=== PATIENT | male | born 1940 | race Caucasian/White ===

== ENCOUNTER 2017-12-05 09:50 | Emergency (ER) | payer OTHER ==
[2017-12-05 13:13] LABS: ADD MAN DIFF? NO
[2017-12-05 13:16] LABS: WHITE BLOOD COUNT 6.6 10^3/ul (4.8-10.8)
[2017-12-05 13:16] LABS: BASOPHIL # 0.1 10^3/ul (0.0-0.1); BASOPHILS % 0.9 % (0.0-2.0); EOSINOPHILS % 0.5 % (0.0-7.0); HEMOGLOBIN 16.6 g/dl (14.0-18.0); LYMPHOCYTES % 30.8 % (15.0-51.0); MEAN CORPUSCULAR HEMOGLOBIN 29.9 pg (29.0-33.0); MEAN CORPUSCULAR HGB CONC 33.2 g/dl (32.0-37.0); MEAN CORPUSCULAR VOLUME 90.1 fl (82.0-101.0); MEAN PLATELET VOLUME 12.2 fl (7.4-10.4); MONOCYTE # 0.5 10^3/ul (0.3-0.9); MONOCYTES % 7.8 % (0.0-11.0); NEUTROPHIL # 3.9 10^3/ul (1.6-7.5); NEUTROPHILS % 59.7 % (39.0-77.0); PLATELET COUNT 166 10^3/UL (140-415); RED BLOOD COUNT 5.55 10^6/ul (4.70-6.10); RED CELL DISTRIBUTION WIDTH 12.6 % (11.5-14.5)
[2017-12-05 13:37] LABS: ANION GAP 18 (8-16); BLOOD UREA NITROGEN 12 mg/dl (7-20); CALCIUM 9.4 mg/dl (8.4-10.2); CARBON DIOXIDE 21 mmol/L (21-31); CHLORIDE 106 mmol/L (97-110); CREATININE 1.11 mg/dl (0.61-1.24); GLUCOSE 129 mg/dl (70-220); POTASSIUM 4.4 mmol/L (3.5-5.1); SODIUM 141 mmol/L (135-144)
[2017-12-05 13:49] LABS: TROPONIN-I < 0.012 ng/ml (0.00-0.12)
[2017-12-05] MEDS: NICARDipine HCL 30 MG CAPSULE PO (14:08)
== END 2017-12-05 15:46 | disposition home or self-care (01) ==
LOC: E/R 09:50
DX: I10 Essential (primary) hypertension (principal); R00.1 Bradycardia, unspecified
CPT/HCPCS: 36415; 71045; 80048; 84484; 85025; 93005; 99285-25

== ENCOUNTER 2018-09-03 05:26 | Emergency (ER) | payer OTHER ==
[2018-09-03] MEDS: SODIUM CHLORIDE 0.9% 1L BAG IV* (06:41)
[2018-09-03 06:42] LABS: ADD MAN DIFF? NO
[2018-09-03 06:47] LABS: ABNORMAL IP MESSAGE 1; BASOPHILS % 0.2 % (0.0-2.0); HEMATOCRIT 42.3 % (42.0-52.0); HEMOGLOBIN 14.4 g/dl (14.0-18.0); LYMPHOCYTES # 0.4 10^3/ul (0.8-2.9); LYMPHOCYTES % 2.7 % (15.0-51.0); MEAN CORPUSCULAR HEMOGLOBIN 30.1 pg (29.0-33.0); MEAN CORPUSCULAR VOLUME 88.3 fl (82.0-101.0); MEAN PLATELET VOLUME 11.2 fl (7.4-10.4); MONOCYTES % 5.9 % (0.0-11.0); NEUTROPHIL # 14.6 10^3/ul (1.6-7.5); NEUTROPHILS % 90.5 % (39.0-77.0); PLATELET COUNT 147 10^3/UL (140-415); POSITIVE DIFF @See below; RED BLOOD COUNT 4.79 10^6/ul (4.70-6.10); RED CELL DISTRIBUTION WIDTH 12.6 % (11.5-14.5)
[2018-09-03 06:47] LABS: WHITE BLOOD COUNT 16.2 10^3/ul (4.8-10.8)
[2018-09-03 07:04] LABS: ADD UMIC YES; UR ASCORBIC ACID NEGATIVE (NEGATIVE); UR BACTERIA FEW /HPF (NONE SEEN); UR BILIRUBIN (Dip) NEGATIVE (NEGATIVE); UR BLOOD (Dip) 1+ mg/dL (NEGATIVE); UR CLARITY CLEAR (CLEAR); UR COLOR YELLOW (YELLOW); UR GLUCOSE (Dip) NEGATIVE (NEGATIVE); UR KETONES (Dip) TRACE mg/dL (NEGATIVE); UR LEUKOCYTE ESTERASE (Dip) NEGATIVE Leu/ul (NEGATIVE); UR NITRITE (Dip) NEGATIVE (NEGATIVE); UR RBC 0 /HPF (0-5); UR SPECIFIC GRAVITY (Dip) 1.013 (1.003-1.030); UR TOTAL PROTEIN (Dip) NEGATIVE (NEGATIVE); UR UROBILINOGEN (Dip) NEGATIVE (NEGATIVE); UR WBC 0 /HPF (0-5)
[2018-09-03 07:05] LABS: ALANINE AMINOTRANSFERASE 25 IU/L (13-69); ALBUMIN 4.1 g/dl (3.3-4.9); ALBUMIN/GLOBULIN RATIO 1.41; ALKALINE PHOSPHATASE 50 IU/L (42-121); ANION GAP 11 (5-13); ASPARTATE AMINO TRANSFERASE 24 IU/L (15-46); BILIRUBIN,INDIRECT 1.1 mg/dl (0-1.1); BILIRUBIN,TOTAL 1.1 mg/dl (0.2-1.3); BLOOD UREA NITROGEN 22 mg/dl (7-20); CARBON DIOXIDE 25 mmol/L (21-31); CHLORIDE 100 mmol/L (97-110); CREATININE 1.26 mg/dl (0.61-1.24); GLUCOSE 151 mg/dl (70-220); POTASSIUM 3.6 mmol/L (3.5-5.1); SODIUM 136 mmol/L (135-144)
[2018-09-03 07:09] LABS: INR 1.01; PROTIME 13.4 Sec (11.9-14.9)
[2018-09-03 07:10] LABS: PARTIAL THROMBOPLASTIN TIME 29.5 Sec (23.0-35.0)
[2018-09-03 07:15] LABS: TROPONIN-I < 0.012 ng/ml (0.000-0.120)
[2018-09-03] MEDS: ONDANSETRON 4 MG INJ IV (07:22)
== END 2018-09-03 08:08 | disposition home or self-care (01) ==
LOC: E/R 05:26
DX: R35.0 Frequency of micturition (principal); R11.0 Nausea; R40.2142 Coma scale, eyes open, spontaneous, at arrival to emergency department; R40.2252 Coma scale, best verbal response, oriented, at arrival to emergency department; R40.2362 Coma scale, best motor response, obeys commands, at arrival to emergency department; I10 Essential (primary) hypertension
CPT/HCPCS: 36415; 71045; 80053; 81001; 83605; 84484; 85025; 85610; 85730; 87040; 87086; 93005; 96361; 96374; 99285-25

== ENCOUNTER 2019-03-25 19:25 | Inpatient (IN) | payer OTHER ==
[2019-03-25 20:12] LABS: ADD MAN DIFF? NO
[2019-03-25] MEDS: ONDANSETRON 4 MG INJ IV (20:12)
[2019-03-25] MEDS: LIDOCAINE/MYLANTA 40 ML BTL PO (20:12)
[2019-03-25] MEDS: KETOROLAC 15 MG INJ IV (20:12)
[2019-03-25] MEDS: BELLADONNA/PHENOBARBITAL TAB PO (20:12)
[2019-03-25] MEDS: SOD CHLORIDE 0.9% 1,000 ML IV (20:12)
[2019-03-25 20:14] LABS: BASOPHILS % 0.8 % (0.0-2.0); EOSINOPHILS # 0.1 10^3/ul (0.0-0.5); EOSINOPHILS % 1.4 % (0.0-7.0); HEMATOCRIT 43.9 % (42.0-52.0); HEMOGLOBIN 14.5 g/dl (14.0-18.0); LYMPHOCYTES # 1.9 10^3/ul (0.8-2.9); LYMPHOCYTES % 36.9 % (15.0-51.0); MEAN CORPUSCULAR HEMOGLOBIN 30.1 pg (29.0-33.0); MEAN CORPUSCULAR VOLUME 91.1 fl (82.0-101.0); MEAN PLATELET VOLUME 11.1 fl (7.4-10.4); MONOCYTE # 0.6 10^3/ul (0.3-0.9); MONOCYTES % 11.8 % (0.0-11.0); NEUTROPHIL # 2.5 10^3/ul (1.6-7.5); NEUTROPHILS % 48.9 % (39.0-77.0); PLATELET COUNT 157 10^3/UL (140-415); RED BLOOD COUNT 4.82 10^6/ul (4.70-6.10)
[2019-03-25 20:14] LABS: WHITE BLOOD COUNT 5.1 10^3/ul (4.8-10.8)
[2019-03-25 20:27] LABS: ALANINE AMINOTRANSFERASE 23 IU/L (13-69); ALBUMIN 3.9 g/dl (3.3-4.9); ALBUMIN/GLOBULIN RATIO 1.18; ALKALINE PHOSPHATASE 49 IU/L (42-121); ANION GAP 8 (5-13); ASPARTATE AMINO TRANSFERASE 22 IU/L (15-46); BILIRUBIN,INDIRECT 0.6 mg/dl (0-1.1); BILIRUBIN,TOTAL 0.6 mg/dl (0.2-1.3); BLOOD UREA NITROGEN 23 mg/dl (7-20); CARBON DIOXIDE 25 mmol/L (21-31); CHLORIDE 105 mmol/L (97-110); CREATININE 1.26 mg/dl (0.61-1.24); GLUCOSE 154 mg/dl (70-220); LIPASE 309 U/L (23-300); POTASSIUM 3.8 mmol/L (3.5-5.1); SODIUM 138 mmol/L (135-144); TOTAL PROTEIN 7.2 g/dl (6.1-8.1)
[2019-03-25 20:33] LABS: INR 0.99; PROTIME 13.2 Sec (11.9-14.9)
[2019-03-25 20:34] LABS: PARTIAL THROMBOPLASTIN TIME 30.5 Sec (23.0-35.0)
[2019-03-25 20:39] LABS: TROPONIN-I < 0.012 ng/ml (0.000-0.120)
[2019-03-25] MEDS: PIPER-TAZO 3.375 GM IV (PMX) 100 ML IVPB (21:22)
[2019-03-25] MEDS: HYDROmorphONE 2 MG/ML SYG IV (22:21)
[2019-03-25] MEDS ORDERED: NACL 0.9% 3 ML SYG IV (22:30)
[2019-03-25] MEDS ORDERED: DOCUSATE SODIUM 100 MG CAP PO (22:30)
[2019-03-25] MEDS ORDERED: ACETAMINOPHEN 325 MG TAB PO (22:30)
[2019-03-26] MEDS: FAMOTIDINE 20 MG INJ IV ×2 (01:08→22:50)
[2019-03-26] MEDS: D5-NS + KCL 20 MEQ 1,000 ML IV ×2 (01:08→11:50)
[2019-03-26] MEDS: hydrALAzine 20 MG INJ IV ×2 (01:14→08:48)
[2019-03-26 07:06] LABS: ADD MAN DIFF? NO
[2019-03-26 07:11] LABS: WHITE BLOOD COUNT 8.1 10^3/ul (4.8-10.8)
[2019-03-26 07:11] LABS: BASOPHILS % 0.5 % (0.0-2.0); EOSINOPHILS % 0.1 % (0.0-7.0); HEMATOCRIT 46.1 % (42.0-52.0); HEMOGLOBIN 14.8 g/dl (14.0-18.0); LYMPHOCYTES # 1.1 10^3/ul (0.8-2.9); LYMPHOCYTES % 13.9 % (15.0-51.0); MEAN CORPUSCULAR HEMOGLOBIN 29.6 pg (29.0-33.0); MEAN CORPUSCULAR HGB CONC 32.1 g/dl (32.0-37.0); MEAN CORPUSCULAR VOLUME 92.2 fl (82.0-101.0); MEAN PLATELET VOLUME 11.6 fl (7.4-10.4); MONOCYTE # 0.5 10^3/ul (0.3-0.9); NEUTROPHIL # 6.4 10^3/ul (1.6-7.5); NEUTROPHILS % 79.3 % (39.0-77.0); PLATELET COUNT 144 10^3/UL (140-415); RED CELL DISTRIBUTION WIDTH 13.4 % (11.5-14.5)
[2019-03-26 07:42] LABS: TROPONIN-I < 0.012 ng/ml (0.000-0.120)
[2019-03-26 08:12] LABS: ALANINE AMINOTRANSFERASE 23 IU/L (13-69); ALBUMIN 4.1 g/dl (3.3-4.9); ALBUMIN/GLOBULIN RATIO 1.24; ALKALINE PHOSPHATASE 52 IU/L (42-121); ANION GAP 9 (5-13); ASPARTATE AMINO TRANSFERASE 25 IU/L (15-46); BILIRUBIN,INDIRECT 0.8 mg/dl (0-1.1); BILIRUBIN,TOTAL 0.8 mg/dl (0.2-1.3); BLOOD UREA NITROGEN 17 mg/dl (7-20); CARBON DIOXIDE 23 mmol/L (21-31); CHLORIDE 108 mmol/L (97-110); CREATININE 1.12 mg/dl (0.61-1.24); GLUCOSE 123 mg/dl (70-220); POTASSIUM 4.3 mmol/L (3.5-5.1); SODIUM 140 mmol/L (135-144); TOTAL PROTEIN 7.4 g/dl (6.1-8.1)
[2019-03-26 08:29] LABS: FREE THYROXINE INDEX (Calc) 3.09 ug/ml (0.65-3.89); T3 UPTAKE 38.1 % (23.5-40.5); T4 (THYROXINE) 8.1 ug/dl (5.5-11.0)
[2019-03-26 08:41] LABS: HEMOGLOBIN A1C 5.7 % (0-5.9)
[2019-03-26] MEDS: ENOXAPARIN 30 MG/0.3 ML SYG SC (08:47)
[2019-03-26] MEDS ORDERED: NON-FORMULARY/PATIENT OWN MED (Losartan-Hydrochlorothiazide (Losartan-HCTZ) 1 TAB) PO (09:00)
[2019-03-26 09:09] LABS: LIPASE 173 U/L (23-300)
[2019-03-26 09:09] LABS: AMYLASE 139 U/L (11-123)
[2019-03-26] MEDS: PIPER-TAZO 3.375 GM IV (PMX) 100 ML IVPB ×3 (12:20→23:57)
[2019-03-26] MEDS: morphine 2 MG INJ IV (12:54)
[2019-03-26] MEDS: QUETIAPINE 25 MG TAB NGT ×2 (15:29→20:40)
[2019-03-26] MEDS: HALOPERIDOL 5 MG INJ IM (18:06)
[2019-03-26] MEDS ORDERED: TERAZOSIN 1 MG CAP (19:48)
[2019-03-26] MEDS ORDERED: FAMOTIDINE 20 MG TAB (19:48)
[2019-03-26] MEDS ORDERED: MELATONIN 3 MG TABLET (19:48)
[2019-03-26 20:01] LABS: ADD UMIC NO; UR ASCORBIC ACID NEGATIVE (NEGATIVE); UR BILIRUBIN (Dip) NEGATIVE (NEGATIVE); UR BLOOD (Dip) NEGATIVE (NEGATIVE); UR CLARITY CLEAR (CLEAR); UR COLOR STRAW (YELLOW); UR GLUCOSE (Dip) NEGATIVE (NEGATIVE); UR KETONES (Dip) NEGATIVE (NEGATIVE); UR LEUKOCYTE ESTERASE (Dip) NEGATIVE Leu/ul (NEGATIVE); UR NITRITE (Dip) NEGATIVE (NEGATIVE); UR SPECIFIC GRAVITY (Dip) 1.003 (1.003-1.030); UR TOTAL PROTEIN (Dip) NEGATIVE (NEGATIVE); UR UROBILINOGEN (Dip) NEGATIVE (NEGATIVE)
[2019-03-26] MEDS: LOSARTAN 50 MG TAB PO (20:41)
[2019-03-26] MEDS: TERAZOSIN 1 MG CAP PO (20:41)
[2019-03-26] MEDS: MELATONIN 3 MG TABLET PO (20:43)
[2019-03-26] MEDS ORDERED: NON-FORMULARY/PATIENT OWN MED (Melatonin 3 MG) PO (21:00)
[2019-03-26] MEDS: FLUTICASONE 0.05% 16 GM NAS SPRAY NASAL (22:50)
[2019-03-27] MEDS: D5-NS + KCL 20 MEQ 1,000 ML IV ×2 (01:10→05:30)
[2019-03-27 05:28] LABS: ADD MAN DIFF? NO
[2019-03-27] MEDS: PIPER-TAZO 3.375 GM IV (PMX) 100 ML IVPB ×3 (05:32→18:06)
[2019-03-27 05:35] LABS: BASOPHIL # 0.1 10^3/ul (0.0-0.1); BASOPHILS % 1.2 % (0.0-2.0); EOSINOPHILS # 0.1 10^3/ul (0.0-0.5); EOSINOPHILS % 1.9 % (0.0-7.0); HEMATOCRIT 41.5 % (42.0-52.0); HEMOGLOBIN 13.3 g/dl (14.0-18.0); LYMPHOCYTES # 0.9 10^3/ul (0.8-2.9); LYMPHOCYTES % 21.8 % (15.0-51.0); MEAN CORPUSCULAR HEMOGLOBIN 29.8 pg (29.0-33.0); MEAN PLATELET VOLUME 11.4 fl (7.4-10.4); MONOCYTE # 0.7 10^3/ul (0.3-0.9); MONOCYTES % 15.1 % (0.0-11.0); NEUTROPHIL # 2.6 10^3/ul (1.6-7.5); NEUTROPHILS % 59.8 % (39.0-77.0); PLATELET COUNT 153 10^3/UL (140-415); RED BLOOD COUNT 4.46 10^6/ul (4.70-6.10); RED CELL DISTRIBUTION WIDTH 13.4 % (11.5-14.5)
[2019-03-27 05:35] LABS: WHITE BLOOD COUNT 4.3 10^3/ul (4.8-10.8)
[2019-03-27 05:56] LABS: PHOSPHORUS 3.4 mg/dl (2.5-4.9)
[2019-03-27 05:56] LABS: MAGNESIUM 2.1 mg/dl (1.7-2.5)
[2019-03-27 06:08] LABS: ALANINE AMINOTRANSFERASE 23 IU/L (13-69); ALBUMIN 3.4 g/dl (3.3-4.9); ALBUMIN/GLOBULIN RATIO 1.17; ALKALINE PHOSPHATASE 34 IU/L (42-121); ANION GAP 6 (5-13); ASPARTATE AMINO TRANSFERASE 25 IU/L (15-46); BILIRUBIN,INDIRECT 1.5 mg/dl (0-1.1); BILIRUBIN,TOTAL 1.5 mg/dl (0.2-1.3); BLOOD UREA NITROGEN 11 mg/dl (7-20); CALCIUM 8.8 mg/dl (8.4-10.2); CARBON DIOXIDE 26 mmol/L (21-31); CHLORIDE 109 mmol/L (97-110); GLUCOSE 108 mg/dl (70-220); POTASSIUM 3.9 mmol/L (3.5-5.1); SODIUM 141 mmol/L (135-144); TOTAL PROTEIN 6.3 g/dl (6.1-8.1)
[2019-03-27] MEDS: AMLODIPINE 2.5 MG TAB PO (08:35)
[2019-03-27] MEDS: QUETIAPINE 25 MG TAB NGT ×2 (08:35→20:25)
[2019-03-27] MEDS: LOSARTAN 50 MG TAB PO (08:35)
[2019-03-27] MEDS: FLUTICASONE 0.05% 16 GM NAS SPRAY NASAL ×2 (08:35→20:26)
[2019-03-27] MEDS: ENOXAPARIN 30 MG/0.3 ML SYG SC (08:37)
[2019-03-27] MEDS: ONDANSETRON (ODT) 4 MG TAB ODT (09:17)
[2019-03-27] MEDS: SODIUM CHLORIDE 0.9% 1L BAG IV* (09:53)
[2019-03-27] MEDS ORDERED: HALOPERIDOL 5 MG INJ IV (20:00)
[2019-03-27] MEDS ORDERED: HALOPERIDOL 5 MG INJ (20:00)
[2019-03-27] MEDS: HALOPERIDOL 5 MG INJ IM (20:04)
[2019-03-27] MEDS: TERAZOSIN 1 MG CAP PO (20:25)
[2019-03-27] MEDS: MELATONIN 3 MG TABLET PO (20:26)
[2019-03-27] MEDS: FAMOTIDINE 20 MG INJ IV (22:30)
[2019-03-28] MEDS: PIPER-TAZO 3.375 GM IV (PMX) 100 ML IVPB ×3 (00:21→11:38)
[2019-03-28] MEDS: hydrALAzine 20 MG INJ IV (01:37)
[2019-03-28] MEDS ORDERED: HALOPERIDOL 5 MG INJ IM (03:30)
[2019-03-28 05:17] LABS: ADD MAN DIFF? NO
[2019-03-28 05:20] LABS: BASOPHIL # 0.1 10^3/ul (0.0-0.1); BASOPHILS % 1.4 % (0.0-2.0); EOSINOPHILS # 0.1 10^3/ul (0.0-0.5); EOSINOPHILS % 2.3 % (0.0-7.0); HEMATOCRIT 45.1 % (42.0-52.0); HEMOGLOBIN 14.4 g/dl (14.0-18.0); LYMPHOCYTES # 1.3 10^3/ul (0.8-2.9); LYMPHOCYTES % 25.6 % (15.0-51.0); MEAN CORPUSCULAR HEMOGLOBIN 29.7 pg (29.0-33.0); MEAN CORPUSCULAR HGB CONC 31.9 g/dl (32.0-37.0); MEAN PLATELET VOLUME 11.3 fl (7.4-10.4); MONOCYTE # 0.5 10^3/ul (0.3-0.9); MONOCYTES % 10.9 % (0.0-11.0); NEUTROPHIL # 2.9 10^3/ul (1.6-7.5); NEUTROPHILS % 59.6 % (39.0-77.0); PLATELET COUNT 165 10^3/UL (140-415); RED BLOOD COUNT 4.85 10^6/ul (4.70-6.10); RED CELL DISTRIBUTION WIDTH 13.6 % (11.5-14.5)
[2019-03-28 05:20] LABS: WHITE BLOOD COUNT 4.9 10^3/ul (4.8-10.8)
[2019-03-28] MEDS: morphine 2 MG INJ IV (05:24)
[2019-03-28 05:53] LABS: PHOSPHORUS 3.8 mg/dl (2.5-4.9)
[2019-03-28 05:53] LABS: MAGNESIUM 2.1 mg/dl (1.7-2.5)
[2019-03-28 05:57] LABS: ALANINE AMINOTRANSFERASE 20 IU/L (13-69); ALBUMIN 3.9 g/dl (3.3-4.9); ALKALINE PHOSPHATASE 42 IU/L (42-121); ANION GAP 10 (5-13); ASPARTATE AMINO TRANSFERASE 29 IU/L (15-46); BILIRUBIN,INDIRECT 1.2 mg/dl (0-1.1); BILIRUBIN,TOTAL 1.2 mg/dl (0.2-1.3); BLOOD UREA NITROGEN 8 mg/dl (7-20); CALCIUM 9.2 mg/dl (8.4-10.2); CARBON DIOXIDE 24 mmol/L (21-31); CHLORIDE 107 mmol/L (97-110); CREATININE 1.32 mg/dl (0.61-1.24); GLUCOSE 109 mg/dl (70-220); POTASSIUM 3.8 mmol/L (3.5-5.1); SODIUM 141 mmol/L (135-144); TOTAL PROTEIN 6.9 g/dl (6.1-8.1)
[2019-03-28] MEDS: QUETIAPINE 25 MG TAB NGT (08:43)
[2019-03-28] MEDS: FLUTICASONE 0.05% 16 GM NAS SPRAY NASAL (08:43)
[2019-03-28] MEDS: AMLODIPINE 2.5 MG TAB PO (08:44)
[2019-03-28] MEDS: LOSARTAN 50 MG TAB PO (08:44)
[2019-03-28] MEDS: ENOXAPARIN 30 MG/0.3 ML SYG SC (08:47)
[2019-03-28] MEDS: SOD CHLORIDE 0.9% 500 ML IV (10:26)
== END 2019-03-28 13:00 | disposition home or self-care (01) | DRG 392 ==
LOC: E/R 19:25 → PP2 03-26 20:24
DX: R10.11 Right upper quadrant pain (principal); G93.40 Encephalopathy, unspecified; F01.50 Vascular dementia, unspecified severity, without behavioral disturbance, psychotic disturbance, mood disturbance, and anxiety; E78.5 Hyperlipidemia, unspecified; I10 Essential (primary) hypertension; N40.0 Benign prostatic hyperplasia without lower urinary tract symptoms; M10.9 Gout, unspecified; R41.0 Disorientation, unspecified; Z87.891 Personal history of nicotine dependence
CPT/HCPCS: 36415; 70450; 70551; 76705; 78226; 80053; 81003; 82150; 82607; 83036; 83690; 83735; 84100; 84436; 84479; 84484; 85025; 85610; 85730; 93005; 96361; 96365; 96375; 99285-25